=== PATIENT | female | born 2000 | race Caucasian/White ===

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

== ENCOUNTER 2021-09-27 20:12 | Emergency (ER) | payer OTHER ==
[~2021-09-27] VITALS: Ht 154.9 cm; Wt 56.8 kg
[2021-09-27 21:03] VITALS: BP 118/94
== END 2021-09-27 22:29 | disposition home or self-care (01) ==
LOC: EMS 21:31
DX: H66.42 Suppurative otitis media, unspecified, left ear (principal)
CPT/HCPCS: 99283; Z7502

== ENCOUNTER 2022-08-26 17:02 | Emergency (ER) | payer OTHER ==
[~2022-08-26] VITALS: Ht 154.9 cm; Wt 73.0 kg
[2022-08-26] MEDS ORDERED: SODIUM CHLORIDE 0.9% 1,000 ML IV ONE (17:15)
[2022-08-26 17:22] LABS: BASOPHILS % (AUTO) 0.6 % (0.0-2.0); EOSINOPHILS % (AUTO) 0.6 % (1.0-6.0); HEMOGLOBIN 10.6 g/dL (12.0-16.0); LYMPHOCYTES # (AUTO) 2.4 K/uL (1.0-4.8); LYMPHOCYTES % (AUTO) 27.6 % (22.0-44.0); MEAN CORPUSCULAR HGB CONC 33.1 G/dL (31.0-37.0); MEAN CORPUSCULAR VOLUME 91 fL (80-100); MONOCYTES # (AUTO) 0.6 K/uL (0.1-1.0); MONOCYTES % (AUTO) 6.5 % (2.0-9.0); NEUTROPHILS # (AUTO) 5.6 K/uL (1.8-7.7); NEUTROPHILS % (AUTO) 64.7 % (40.0-70.0); PLATELET COUNT (AUTO) 269 K/uL (150-450); RED BLOOD CELL COUNT(AUTO) 3.54 MIL/uL (4.00-5.20); RED CELL DISTRIBUTION WIDTH 14.2 % (11.5-14.5)
[2022-08-26 17:30] LABS: ANION GAP 9 mmol/L (8-16); CALCIUM, TOTAL 9.1 mg/dL (8.8-10.5); CARBON DIOXIDE 21 mmol/L (22-29); CHLORIDE 106 mmol/L (98-107); CREATININE 0.56 mg/dL (0.60-1.30); GLOMERULAR FILTR. RATE CALC > 60 mL/min (>60); GLUCOSE,RANDOM 102 mg/dL (70-110); POTASSIUM 3.7 mmol/L (3.5-5.1); SODIUM SERUM 136 mmol/L (136-145); UREA NITROGEN, BLOOD 7 mg/dL (7-18)
[2022-08-26 17:58] VITALS: BP 128/82
== END 2022-08-26 19:00 | disposition home or self-care (01) ==
LOC: EMS 17:03
DX: O47.1 False labor at or after 37 completed weeks of gestation (principal); N94.89 Other specified conditions associated with female genital organs and menstrual cycle; Z3A.38 38 weeks gestation of pregnancy
CPT/HCPCS: 99284; 96360; 76805; 80048; 85025; 36415; J7030